=== PATIENT | female | born 1975 ===

== ENCOUNTER 2025-02-23 10:37 | Day surgery (SDC) | payer OTHER ==
[2025-02-19 14:36] VITALS: BP 150/88
[~2025-02-23] VITALS: Ht 172.7 cm; Wt 90.7 kg
[2025-02-23] MEDS ORDERED: METRONIDAZOLE/SODIUM CHLORIDE 500 MG/100 ML PIGGYBACK IV ONE (11:16)
[2025-02-23] MEDS ORDERED: CEFTRIAXONE SODIUM 2,000 MG VIAL ONE (11:16)
[2025-02-23] MEDS ORDERED: DIBUCAINE 30 GM TUBE ONE (11:23)
[2025-02-23] MEDS ORDERED: HEMOSTATIC MATRIX WITH THROMBIN KIT TOP ONE (11:24)
[2025-02-23] MEDS ORDERED: LIDOCAINE HCL 1%/EPINEPHRINE 20ML VIAL IJ ONE ×2 (11:24→11:39)
[2025-02-23] MEDS ORDERED: POVIDONE-IODINE 118 ML BOTT TOP ONE ×2 (11:24→11:38)
[2025-02-23] MEDS ORDERED: BUPIVACAINE HCL/MPF 0.5% 30ML VIAL ONE ×2 (11:24→11:38)
[2025-02-23] MEDS ORDERED: HEMOSTATIC MATRIX 1 KIT KIT TOP ONE (12:17)
[2025-02-23] MEDS ORDERED: TRAM1TAB98 PO (13:18)
[2025-02-23] MEDS ORDERED: COLACE100 MG PO (13:18)
== END 2025-02-23 18:00 | disposition home or self-care (01) ==
LOC: CIR.AMB 10:37
PROVIDERS: ATTEND Surgery
DX: D12.9 Benign neoplasm of anus and anal canal (principal)